=== PATIENT | male | born 1945 | race Caucasian/White ===

== ENCOUNTER 2021-03-19 12:04 | Emergency (ER) | payer OTHER, MEDICARE ==
[~2021-03-19] VITALS: Ht 182.8 cm; Wt 104.3 kg
== END 2021-03-19 15:15 | disposition home or self-care (01) ==
LOC: ED 12:04
DX: S16.1XXA Strain of muscle, fascia and tendon at neck level, initial encounter (principal); S60.212A Contusion of left wrist, initial encounter; V89.2XXA Person injured in unspecified motor-vehicle accident, traffic, initial encounter; Y93.89 Activity, other specified; Y92.89 Other specified places as the place of occurrence of the external cause; Y99.8 Other external cause status